=== PATIENT | female | born 1955 | race African-American/Black ===

== ENCOUNTER 2020-06-15 03:13 | Inpatient (IN) | payer OTHER ==
[~2020-06-15] VITALS: Ht 167.6 cm; Wt 100.0 kg
[2020-06-15] MEDS ORDERED: ONDANSETRON HCL 4 MG/2 ML VIAL IVP ONE (03:30)
[2020-06-15] MEDS ORDERED: NITROGLYCERIN 50 MG/D5% WATER 250 ML IV PRN (03:30)
[2020-06-15] MEDS ORDERED: FUROSEMIDE 40 MG/4 ML VIAL IVP ONE (03:30)
[2020-06-15] MEDS ORDERED: 0.9% SODIUM CHLORIDE 10 ML SYRINGE IVP PRN (03:30)
[2020-06-15 03:36] LABS: HEMATOCRIT 30.4 % (36-46); HEMOGLOBIN 9.3 g/dL (12.0-16.0); MEAN CORPUSCULAR HEMOGLOBIN 22.4 pg (26.0-34.0); MEAN CORPUSCULAR HGB CONC 30.5 G/dL (31.0-37.0); MEAN CORPUSCULAR VOLUME 73 fL (80-100); PLATELET COUNT (AUTO) 284 K/uL (150-450); RED BLOOD CELL COUNT(AUTO) 4.15 MIL/uL (4.00-5.20); RED CELL DISTRIBUTION WIDTH 16.2 % (11.5-14.5)
[2020-06-15] MEDS ORDERED: FLUO-191 PO (03:47)
[2020-06-15] MEDS ORDERED: ATOR40TA28 PO (03:47)
[2020-06-15] MEDS ORDERED: DABI150 PO (03:47)
[2020-06-15] MEDS ORDERED: MYCO500T5 PO (03:47)
[2020-06-15 03:48] LABS: ABG A-A DIFF O2 607.9 mmHg (10-20.0); ABG BASE EXCESS -12.6 mmol/L (-2.0-3.0); ABG CARBOXYHEMOGLOBIN 0.3 % (0.0-1.5); ABG HCO3 14.9 mmol/L (22.0-26.0); ABG METHEMOGLOBIN 0.4 % (0.0-1.5); ABG OXYGEN CONTENT 12.5 mL/dL (15.0-23.0); ABG OXYGEN SATURATION 89.6 % (95.0-98.0); ABG PCO2 41 mmHg (35-45); ABG TOTAL HEMOGLOBIN 9.9 G/dL (12.0-18.0); PO2, ARTERIAL BG 64.9 mmHg (79.0-87.0); SOURCE, BLOOD GAS ARTERIAL
[2020-06-15 03:50] LABS: ABG PH 7.196 (7.35-7.450); O2 DEVICE,BLOOD GAS BIPAP (ROOM AIR); SITE, BLOOD GAS RT RADIAL
[2020-06-15 03:51] LABS: COVID AG,FIA SOURCE NASOPHARYNGEAL
[2020-06-15 03:52] LABS: BILIRUBIN,TOTAL 0.7 mg/dL (0.1-1.0); CALCIUM, TOTAL 8.9 mg/dL (8.8-10.5); CREATININE 4.86 mg/dL (0.60-1.30); TOTAL PROTEIN, SERUM 8.9 g/dL (6.4-8.2)
[2020-06-15 03:59] LABS: POTASSIUM 6.6 mmol/L (3.5-5.1)
[2020-06-15 04:00] LABS: LACTIC ACID 6.2 mmol/L (0.4-2.0)
[2020-06-15] MEDS ORDERED: ALBUTEROL SULFATE 5 MG/ML 20 ML NEB SOLN [BULK] NEB ONE (04:00)
[2020-06-15] MEDS ORDERED: VANCOMYCIN HCL 1.5 GM in DEXTROSE 5%-WATER 250 ML IV ONE (04:00)
[2020-06-15] MEDS ORDERED: PIPERACILLIN/TAZO 3.375 GM/D5W 50 ML IV ONE (04:00)
[2020-06-15] MEDS ORDERED: DEXTROSE 50%-WATER 25 GM/50 ML SYRINGE IVP ONE (04:00)
[2020-06-15] MEDS ORDERED: INSULIN REGULAR, HUMAN 100 UNITS/ML IVP ONE (04:00)
[2020-06-15 04:25] LABS: BAND NEUTROPHILS % (MANUAL) 5 % (0-5); LYMPHOCYTES % (MANUAL) 3 % (22-44); MONOCYTES % (MANUAL) 2 % (2-9); SEGMENTED NEUTROPHILS % 90 % (40-70)
[2020-06-15 04:26] LABS: APPEARANCE,URINE TURBID (CLEAR); BILIRUBIN,URINE NEGATIVE (NEGATIVE); GLUCOSE, URINE (UA) NEGATIVE (NEGATIVE); KETONES,URINE NEGATIVE (NEGATIVE); LEUKOCYTE ESTERASE ,URINE SMALL (NEGATIVE); NITRATE,URINE NEGATIVE (NEGATIVE); OCCULT BLOOD,URINE LARGE (NEGATIVE); PROTEIN,URINE POS 1+ (NEGATIVE); UROBILINOGEN,URINE 0.2 mg/dL (<=1.0)
[2020-06-15 04:28] LABS: GLUCOSE,POINT OF CARE 152 MG/DL (70-110)
[2020-06-15 04:29] LABS: BACTERIA,URINE Moderate /HPF (None Seen); RBC,URINE >100 /HPF (0-2); SQUAMOUS EPITHELIAL CELL,UR Many /LPF (None Seen)
[2020-06-15 04:35] LABS: INR 1.3 (0.9-1.1); PROTHROMBIN TIME 13.3 SEC (9.4-11.6)
[2020-06-15] MEDS ORDERED: PROPOFOL 1000 MG/ISO-OSM 100 ML IV PRN (04:45)
[2020-06-15] MEDS ORDERED: SODIUM CHLORIDE 0.9% 1,000 ML IV ONE ×2 (05:00→05:15)
[2020-06-15] MEDS ORDERED: SODIUM BICARBONATE [ADULT] 8.4% 50 MEQ/50 ML SYRINGE IVP ONE ×4 (05:00→16:15)
[2020-06-15] MEDS ORDERED: SODIUM BICARBONATE 150 MEQ in SODIUM CHLORIDE 0.9% 1,000 ML IV ONE (05:15)
[2020-06-15] MEDS ORDERED: *CLINICAL-LEVOFLOXACIN IVPB DOSING CLINICAL ONE (05:15)
[2020-06-15] MEDS ORDERED: LEVOFLOXACIN 500 MG/D5% WATER 100 ML IV ONE (05:30)
[2020-06-15] MEDS ORDERED: ACETAMINOPHEN 325 MG TABLET PO PRN (05:45)
[2020-06-15] MEDS ORDERED: ONDANSETRON HCL 4 MG/2 ML VIAL IVP PRN ×2 (05:45→06:00)
[2020-06-15] MEDS ORDERED: POTASSIUM CHLORIDE 20 MEQ ER TABLET PO PRN (06:00)
[2020-06-15] MEDS ORDERED: MAGNESIUM SULFATE 2 GM/WATER 50 ML IV PRN (06:00)
[2020-06-15] MEDS ORDERED: POTASSIUM CHL 10 MEQ/WATER 50 ML IV PRN (06:00)
[2020-06-15] MEDS ORDERED: MAGNESIUM OXIDE 400 MG TABLET PO PRN (06:00)
[2020-06-15] MEDS ORDERED: MAGNESIUM SULFATE 4 GM/WATER 100 ML IV PRN (06:00)
[2020-06-15] MEDS ORDERED: HEPARIN SODIUM,PORCINE 5,000 UNITS/ML VIAL SQ SCH (06:00)
[2020-06-15 06:15] LABS: PHOSPHORUS 5.8 mg/dL (2.5-4.9)
[2020-06-15] MEDS ORDERED: SODIUM ZIRCONIUM CYCLOSILICATE 5 GM POWDER PACKET NG ONE (06:15)
[2020-06-15] MEDS ORDERED: FentaNYL CITRATE PF 500 MCG in DEXTROSE 5%-WATER 90 ML IV PRN (06:15)
[2020-06-15] MEDS ORDERED: DEXTROSE 50%-WATER 25 GM/50 ML SYRINGE IVP PRN (06:15)
[2020-06-15] MEDS ORDERED: INSULIN LISPRO 100 UNITS/ML SQ PRN (06:15)
[2020-06-15] MEDS ORDERED: VANCOMYCIN HCL 1 GM/D5% WATER 200 ML IV PRN (06:30)
[2020-06-15 06:56] LABS: ABG BASE EXCESS -5.1 mmol/L (-2.0-3.0); ABG CARBOXYHEMOGLOBIN 0.4 % (0.0-1.5); ABG HCO3 19.4 mmol/L (22.0-26.0); ABG METHEMOGLOBIN 0.2 % (0.0-1.5); ABG OXYGEN CONTENT 10.5 mL/dL (15.0-23.0); ABG OXYHEMOGLOBIN 80.1 % (94.0-100.0); ABG TOTAL HEMOGLOBIN 9.3 G/dL (12.0-18.0); PO2, ARTERIAL BG 56.4 mmHg (79.0-87.0); SOURCE, BLOOD GAS ARTERIAL; TEMPERATURE, FAHRENHEIT, BG 98.1 FAHREN (96.0-98.6)
[2020-06-15 06:57] LABS: ABG PH 7.074 (7.35-7.450)
[2020-06-15 06:58] LABS: ABG OXYGEN SATURATION 80.6 % (95.0-98.0); ABG PCO2 87 mmHg (35-45); O2 DEVICE,BLOOD GAS VENTILATOR (ROOM AIR); PEEP,BG 10 cm H2O; SITE, BLOOD GAS RT RADIAL; SPONTANEOUS VT, BG 435 ml; VENT MODE, BG Press. Control Vent (ROOM AIR)
[2020-06-15] MEDS ORDERED: NOREPINEPHRINE 4 MG/D5%-WATER 250 ML IV PRN (07:00)
[2020-06-15] MEDS ORDERED: SODIUM CHLORIDE 0.9% 500 ML IV ONE (07:00)
[2020-06-15 07:31] LABS: C-REACTIVE PROTEIN QUANT 14.49 mg/dL (0.00-0.30)
[2020-06-15 07:42] LABS: URIC ACID 7.5 mg/dL (2.6-7.2)
[2020-06-15 08:00] VITALS: BP 77/42
[2020-06-15 09:00] VITALS: BP 126/42
[2020-06-15] MEDS ORDERED: CHLORHEXIDINE GLUCONATE 0.12% 15 ML UDCUP ORAL RINSE MM SCH (09:00)
[2020-06-15] MEDS ORDERED: FAMOTIDINE 10 MG/ML 2 ML VIAL IVP SCH (09:00)
[2020-06-15 09:33] LABS: BASOPHILS % (AUTO) 0.3 % (0.0-2.0); EOSINOPHILS % (AUTO) 0 % (1.0-6.0); HEMATOCRIT 27.8 % (36-46); HEMOGLOBIN 8.5 g/dL (12.0-16.0); LYMPHOCYTES # (AUTO) 0.7 K/uL (1.0-4.8); LYMPHOCYTES % (AUTO) 3.8 % (22.0-44.0); MEAN CORPUSCULAR HEMOGLOBIN 22.3 pg (26.0-34.0); MEAN CORPUSCULAR HGB CONC 30.4 G/dL (31.0-37.0); MEAN CORPUSCULAR VOLUME 74 fL (80-100); MONOCYTES # (AUTO) 0.5 K/uL (0.1-1.0); MONOCYTES % (AUTO) 2.4 % (2.0-9.0); NEUTROPHILS # (AUTO) 17.9 K/uL (1.8-7.7); PLATELET COUNT (AUTO) 268 K/uL (150-450); RED BLOOD CELL COUNT(AUTO) 3.79 MIL/uL (4.00-5.20); RED CELL DISTRIBUTION WIDTH 16.4 % (11.5-14.5)
[2020-06-15 09:35] LABS: NEUTROPHILS % (AUTO) 93.5 % (40.0-70.0)
[2020-06-15 09:44] LABS: CALCIUM, TOTAL 8.5 mg/dL (8.8-10.5); CREATININE 4.95 mg/dL (0.60-1.30)
[2020-06-15 09:52] LABS: POTASSIUM 6.2 mmol/L (3.5-5.1)
[2020-06-15] MEDS ORDERED: VASOPRESSIN 40 UNITS in DEXTROSE 5%-WATER 98 ML IV PRN (10:15)
[2020-06-15] MEDS ORDERED: NOREPINEPHRINE BITARTRATE 16 MG in DEXTROSE 5%-WATER 234 ML IV PRN (10:15)
[2020-06-15] MEDS ORDERED: PHENYLEPHRINE 200 MG/D5%-WATER 250 ML IV PRN (10:15)
[2020-06-15] MEDS ORDERED: PIPERACILLIN SODIUM/TAZOBACTAM 2.25 GM in DEXTROSE 5%-WATER 50 ML IV SCH (11:00)
[2020-06-15 12:00] VITALS: BP 97/53
[2020-06-15 12:44] LABS: ABG A-A DIFF O2 588.2 mmHg (10-20.0); ABG BASE EXCESS -14.2 mmol/L (-2.0-3.0); ABG HCO3 12.9 mmol/L (22.0-26.0); ABG METHEMOGLOBIN 0.3 % (0.0-1.5); ABG OXYGEN CONTENT 8.6 mL/dL (15.0-23.0); ABG PCO2 86 mmHg (35-45); ABG PH 6.937 (7.35-7.450); ABG TOTAL HEMOGLOBIN 8.8 G/dL (12.0-18.0); SOURCE, BLOOD GAS ARTERIAL; TEMPERATURE, FAHRENHEIT, BG 95.7 FAHREN (96.0-98.6)
[2020-06-15 12:45] LABS: ABG OXYGEN SATURATION 69.9 % (95.0-98.0); INSPIRATORY TIME, BG 1.2 SEC; O2 DEVICE,BLOOD GAS VENTILATOR (ROOM AIR); PEEP,BG 13 cm H2O; PO2, ARTERIAL BG 42.7 mmHg (79.0-87.0); SITE, BLOOD GAS ARTERIAL LINE; VENT MODE, BG Press. Control Vent (ROOM AIR); VT, ABG 330 ml
[2020-06-15] MEDS ORDERED: HYDROCORTISONE SOD SUCC 100 MG/2 ML VIAL IVP SCH (12:45)
[2020-06-15] MEDS ORDERED: HEPARIN SODIUM,PORCINE 1,000 UNITS/ML VIAL ONE (12:58)
[2020-06-15] MEDS ORDERED: *CLINICAL-BACTRIM/SEPTRA IVPB DOSING CLINICAL ONE (13:15)
[2020-06-15] MEDS ORDERED: SODIUM BICARBONATE 150 MEQ in DEXTROSE 5%-WATER 1,000 ML IV SCH (13:30)
[2020-06-15] MEDS ORDERED: TRIMETH IV SCH (13:30)
[2020-06-15] MEDS ORDERED: VALGANCICLOVIR HCL PO SCH (13:30)
[2020-06-15] MEDS ORDERED: DEXTROSE IV SCH (13:30)
[2020-06-15] MEDS ORDERED: WATER IV SCH (13:30)
[2020-06-15] MEDS ORDERED: SULFAMETHOX IV SCH (13:30)
[2020-06-15] MEDS ORDERED: EPINEPHrine 2 MG, CALCIUM CHLORIDE 1,000 MG in DEXTROSE 5%-WATER 238 ML IV PRN (14:00)
[2020-06-15] MEDS ORDERED: SODIUM CHLORIDE 0.9% 2,000 ML ONE (14:34)
[2020-06-15] MEDS ORDERED: POTASSIUM CHLORIDE 10 MEQ in NXSTAGE RFP-402 K0/CA3 5,000 ML IRRIG PRN (14:45)
[2020-06-15 15:15] LABS: ABG A-A DIFF O2 621.3 mmHg (10-20.0); ABG BASE EXCESS -20.6 mmol/L (-2.0-3.0); ABG CARBOXYHEMOGLOBIN 0.6 % (0.0-1.5); ABG HCO3 9.1 mmol/L (22.0-26.0); ABG METHEMOGLOBIN 0.3 % (0.0-1.5); ABG OXYGEN CONTENT 9.3 mL/dL (15.0-23.0); ABG OXYHEMOGLOBIN 73.8 % (94.0-100.0); ABG PCO2 54 mmHg (35-45); ABG PH 6.945 (7.35-7.450); ABG TOTAL HEMOGLOBIN 8.9 G/dL (12.0-18.0); PO2, ARTERIAL BG 42.5 mmHg (79.0-87.0); SOURCE, BLOOD GAS ARTERIAL
[2020-06-15 15:16] LABS: ABG OXYGEN SATURATION 74.5 % (95.0-98.0); O2 DEVICE,BLOOD GAS VENTILATOR (ROOM AIR); PEEP,BG 13 cm H2O; SITE, BLOOD GAS ARTERIAL LINE; VENT MODE, BG Press. Control Vent (ROOM AIR); VT, ABG 500 ml
[2020-06-15] MEDS ORDERED: NOREPINEPHRINE 4 MG/D5%-WATER 0 ML IV ONE (15:36)
[2020-06-15] MEDS ORDERED: SODIUM BICARBONATE [ADULT] 8.4% 50 MEQ/50 ML SYRINGE IVP STA (15:41)
[2020-06-15 16:00] VITALS: BP 72/20
[2020-06-15 20:29] LABS: GLUCOSE,POINT OF CARE 174 MG/DL (70-110)
== END 2020-06-15 16:55 | disposition expired | DRG 871 ==
LOC: EMS 03:14 → ICUN 08:10 → ICU 09:50
PROVIDERS: ADMIT Internal Medicine; ATTEND Internal Medicine
PROC: 06HY33Z Insertion of Infusion Device into Lower Vein, Percutaneous Approach (ICD-10-PCS; principal; 2020-06-15)
PROC: 5A09357 Assistance with Respiratory Ventilation, Less than 24 Consecutive Hours, Continuous Positive Airway Pressure (ICD-10-PCS; 2020-06-15)
PROC: 5A1935Z Respiratory Ventilation, Less than 24 Consecutive Hours (ICD-10-PCS; 2020-06-15)
PROC: 0BH17EZ Insertion of Endotracheal Airway into Trachea, Via Natural or Artificial Opening (ICD-10-PCS; 2020-06-15)
PROC: 5A12012 Performance of Cardiac Output, Single, Manual (ICD-10-PCS; 2020-06-15)
DX: A41.9 Sepsis, unspecified organism (principal); J96.01 Acute respiratory failure with hypoxia; R65.21 Severe sepsis with septic shock; J18.9 Pneumonia, unspecified organism; N17.0 Acute kidney failure with tubular necrosis; E87.2 Acidosis; N39.0 Urinary tract infection, site not specified; I13.0 Hypertensive heart and chronic kidney disease with heart failure and stage 1 through stage 4 chronic kidney disease, or unspecified chronic kidney disease; Z88.8 Allergy status to other drugs, medicaments and biological substances; Z79.01 Long term (current) use of anticoagulants; E87.5 Hyperkalemia; D64.9 Anemia, unspecified; Z79.899 Other long term (current) drug therapy; M32.9 Systemic lupus erythematosus, unspecified; I50.9 Heart failure, unspecified; E78.5 Hyperlipidemia, unspecified; Z20.828 Contact with and (suspected) exposure to other viral communicable diseases; N05.8 Unspecified nephritic syndrome with other morphologic changes; N18.9 Chronic kidney disease, unspecified
CPT/HCPCS: 36600; 82270; 82728; 82805; 83605; 83615; 84100; 84145; 84550; 85379; 86140; 86160; 86171; 86631; 86632; 86644; 86645; 87040; 87070; 87081; 87086; 87252; 87426; 87449; 92950; 93005; 93306; 94002; 94003; 94660; 99291; G0378; J0171; J1644; J1720; J1815; J1940; J1956; J2370; J2405; J2543; J2704; J3370; J3480; J3490; J7030; J7040; J7060; 36415-L1; 36415-TC; 71045-TC; U0003